=== PATIENT | female | born 2000 | race Caucasian/White ===

== ENCOUNTER 2023-02-02 19:49 | Emergency (ER) | payer BC, SELFPAY ==
[2023-02-02 20:01] VITALS: BP 103/72; PULSE 98; RESP 18; TEMP 36.5; O2SAT 100; BMI 24.9
--- NOTE | 2023-02-02 20:45 | ED.SKABFB ---
HPI - Skin/Abscess/Foreign Bdy General Chief complaint: Skin/Abscess/Foreign Body Stated complaint: said she had strep /pt now has hives Time Seen by Provider: 02/02/23 20:15 History of Present Illness HPI narrative: This 22-year-old female has been having recurrent hives over the past month or so. She has been to urgent care several times regarding this. She also had a sore throat and was diagnosed with a strep infection that returned positive on the culture but was negative for the rapid strep. She was started on clindamycin about 4 days ago. Prior to clindamycin treatment however she has been having hives on various places of her body. She does have persistent itchy hives reaction in both axilla. She has adjusted her lotions and deodorants and also has discontinued everything to try to get some relief from this. She has also taken Benadryl without much relief. She does have triamcinolone cream and nystatin cream that she is using also. She does not report any fevers. Or sore throat is improved. Related Data Home Medications Medication Instructions Recorded Confirmed clindamycin HCl 300 mg capsule 300 mg PO TID 02/02/23 02/02/23 Previous Rx's Medication Instructions Recorded methylprednisolone 4 mg tablets in See Rx Instructions PO .COMPLEX 02/02/23 a dose pack (Medrol (Daryl)) #21 ea Allergies Allergy/AdvReac Type Severity Reaction Status Date / Time Penicillins Allergy Unknown Verified 02/02/23 20:11 Review of Systems Status of ROS: Reports: 10 or more systems reviewed and unremarkable except as noted in History and below Narrative: Constitutional: No fevers, no weight gain or loss. Eyes: No discharge. No vision changes. HENT: No congestion, no sore throat, no ear pain. Cardiovascular: No chest pain, no palpitations. Respiratory: No shortness of breath, no wheezes, no cough. Gastrointestinal: No abdominal pain, no vomiting, no diarrhea. Genitourinary: No dysuria, no hematuria. Musculoskeletal: Normal range of motion. Skin: Recurrent pruritic hives in various parts of her body. Neurological: No dizziness, weakness, sensory change, speech change. Endo/Heme/Allergies: No bruising or bleeding. No polydipsia. Pysch: no suicidality, no anxiety, no insomnia. All other systems reviewed and are negative. PFSH PFSH Social History Smoking Status: Never smoker Do you use any of these nicotine containing products: None How often do you have a drink containing alcohol: never AUDIT-C Alcohol total score: 0 Non-prescribed substance use: denies use Exam Narrative: Exam Narrative: Constitutional: Well-developed, well-nourished, no acute distress. HEENT: Normocephalic, atraumatic. Oropharynx appears normal without exudate. Neck: Normal range of motion. Nontender. Supple. Heart: Regular. No murmurs. Normal rate. Intact distal pulses. Lungs: Clear to auscultation. No chest discomfort. No wheezes, rhonchi, or rales. Abdomen: Normal bowel sounds. Nontender. No rebound tenderness. Genitalia: Deferred. Back: No midline tenderness. Normal range of motion. Extremities: Normal range of motion. No injury. Skin: Intact. Maculopapular rash in both axilla regions and across her abdomen. She has had similar maculopapular rash on her extremities and her back at other times. Neurologic: No altered sensation. No weakness. Alert and oriented. Psychiatric: No suicidality. No anxiety or depression. No insomnia. Nursing notes and vitals signs are reviewed. Const: Vital Signs, click to edit/add: Vital Signs - 24 hr 02/02/23 20:01 Temperature 97.7 F Pulse Rate [Pulse Oximeter] 98 Respiratory Rate 18 Blood Pressure [Ri ght Upper Arm] 103/72 Pulse Oximetry 100 Oxygen Delivery Me thod Room Air Course Vital Signs Vital signs: Initial Vital Signs Temperature 97.7 F 02/02/23 20:01 Temperature Source Temporal Artery Scan 02/02/23 20:01 Pulse Rate 98 02/02/23 20:01 Respiratory Rate 18 02/02/23 20:01 Blood Pressure 103/72 02/02/23 20:01 Blood Pressure Mean 82 02/02/23 20:01 Pulse Oximetry 100 02/02/23 20:01 Oxygen Delivery Method Room Air 02/02/23 20:01 Vital Signs Temperature 97.7 F 02/02/23 20:01 Pulse Rate 98 02/02/23 20:01 Respiratory Rate 18 02/02/23 20:01 Blood Pressure 103/72 02/02/23 20:01 Pulse Oximetry 100 02/02/23 20:01 Oxygen Delivery Method Room Air 02/02/23 20:01 Temperature 97.7 F 02/02/23 20:01 Pulse Rate 98 02/02/23 20:01 Respiratory Rate 18 02/02/23 20:01 Blood Pressure 103/72 02/02/23 20:01 Pulse Oximetry 100 02/02/23 20:01 Oxygen Delivery Method Room Air 02/02/23 20:01 MDM - Skin/Abscess/Foreign Bdy MDM Narrative Medical decision making narrative: This patient has recurrent hives. I stated that this is often a mystery as to what is causing her symptoms. It may be that she has some allergy to clindamycin which she is taking for her strep infection. However her hives were preexistent with regard to this medicine. I advised her to discontinue clindamycin as she is doing better in that regard. The patient plans to follow-up with an dairy equipment repairer. I did prescribe Medrol Dosepak and encouraged her to use Carli. Discharge Plan Discharge Clinical Impression: Urticaria Patient Disposition: Home w/ Parent or Adult Condition: Stable Additional Instructions: Take medication as prescribed. Follow up with primary physician or consider consulting with an dairy equipment repairer or etcher machine. Return if worsening. Prescriptions: New methylprednisolone [Medrol (Daryl)] 4 mg tablets,dose pack See Rx Instructions .ROUTE .COMPLEX Qty: 21 0RF Rx Instructions: orally per package directions No Action clindamycin HCl 300 mg capsule 300 mg PO TID Stand Alone Forms: [employer] Info Instructions
== END 2023-02-02 21:03 | disposition home or self-care (01) ==
LOC: ED 21:01
PROVIDERS: Emergency Provider Emergency Medicine Emergency Medical Services
DX: L50.9 Urticaria, unspecified (principal)
CPT/HCPCS: 99283; 99284